=== PATIENT | male | born 1950 | race African-American/Black ===

== ENCOUNTER 2016-06-28 12:04 | Emergency (ER) | payer OTHER ==
[~2016-06-28] VITALS: Ht 160 cm; Wt 74.8 kg
[~2016-06-28 12:04] MED LIST: AUGMENTIN 875-1 EAC1 ORAL; CARDIZEM60 MG ORAL; DILANTIN100 MG ORAL; LOPRESSOR25 M1 ORAL; MORPHINE SULFAT15 MG PO; NKM; NORCO 5-325 TA1 EACH ORAL; UNOBMED; [UNRECOGNIZED DRUG - REMARK]
[2016-06-28 13:10] LABS: BASOPHILS % (AUTO) 1.9 % (0.0-2.0); EOSINOPHILS % (AUTO) 0.2 % (0.0-3.0); LYMPHOCYTES % (AUTO) 19.9 % (20.0-45.0); MEAN CORPUSCULAR HEMOGLOBIN 27.1 PG (27.0-31.0); MEAN CORPUSCULAR HGB CONC 30.7 G/DL (32.0-36.0); MEAN CORPUSCULAR VOLUME 88 FL (80-99); MONOCYTES % (AUTO) 9.4 % (1.0-10.0); NEUTROPHILS % (AUTO) 68.6 % (45.0-75.0); PLATELET COUNT 158 K/UL (150-450); RED BLOOD COUNT 4.19 M/UL (4.70-6.10); RED CELL DISTRIBUTION WIDTH 12.3 % (11.6-14.8); WHITE BLOOD COUNT 5.8 K/UL (4.8-10.8)
[2016-06-28 13:21] LABS: INR 1.1 (0.9-1.1); PROTHROMBIN TIME 10.7 SEC (9.30-11.50)
[2016-06-28 13:23] LABS: TROPONIN I < 0.30 ng/mL (<=0.30)
[2016-06-28 13:24] LABS: APPEARANCE,URINE CLEAR; KETONES,URINE 1+ (NEGATIVE); LEUKOCYTE ESTERASE ,URINE 1+ (NEGATIVE); NITRITE,URINE NEGATIVE (NEGATIVE); PH,URINE 6 (4.5-8.0); PROTEIN,URINE 2+ (NEGATIVE); UROBILINOGEN,URINE 4 MG/DL (0.0-1.0)
[2016-06-28 13:26] LABS: ALANINE AMINOTRANSFERASE 8 U/L (3-41); ALBUMIN/GLOBULIN RATIO 0.8 (1.0-2.7); ANION GAP 14 (5-15); ASPARTATE AMINO TRANSFERASE 14 U/L (5-40); CALCIUM 9.6 mg/dL (8.6-10.2); CARBON DIOXIDE 26 mEQ/L (20-30); CHLORIDE 98 mEQ/L (98-107); GLOMERULAR FILTRATION RATE > 60 mL/min (>60); HEMOLYSIS 7; POTASSIUM 3.8 mEQ/L (3.4-4.9); SODIUM 138 mEQ/L (135-145); TOTAL PROTEIN 7.2 g/dL (6.6-8.7)
[2016-06-28 13:31] VITALS: BP 152/98
[2016-06-28 13:45] LABS: BACTERIA,URINE FEW /HPF; MUCUS,URINE MODERATE /LPF (NONE/OCC); RBC,URINE 0-2 /HPF (0 - 0); SQUAMOUS EPITHELIAL CELL,UR OCCASIONAL /LPF (NONE/OCC); WBC,URINE 0-2 /HPF (0 - 0)
[2016-06-28 15:19] VITALS: BP 154/89
--- NOTE | 2016-06-28 16:14 | Emergency Room Report ---
History of Present Illness General Chief Complaint: General Complaint Source: Patient, Medical Record Present Illness HPI The patient presents with increased left facial swelling and weakness. He is undergoing radiation therapy and chemotherapy for a tumor. 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 Patient denies headache or chest pain. He is taking morphine at home. His history of lung cancer and also a tumor in his neck or side of his face. I evaluated the patient in the past (10/13) after a parotid biopsy. Here are parts of my note from then: Patient presents with swelling pain and drainage from a mass in his left neck and cheek area. According to the laborer dairy farm the drainage started after a biopsy was obtained. The problem also is identified as starting at that time. The biopsy was done in August. The patient denies any headache, difficulty breathing or swallowing. He also denies fever. He denies pain in the area. The patient also reports that he has a spot on his right lung. He states that the mass is getting larger at this time and then he was seen a month ago. 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 Past Surgical History: other - biopsy in August, craneotomy Social History: Reports: smoking Social History Narrative with laborer dairy farm Head: atraumatic, other - large mass L parotid area extending into neck sychiatric: anxious, other - perseveration Skin: warm/dry, other - large mass with small biopsy area neck with min drainage, erythroderma Primary Impression: Parotid mass Additional Impressions: Facial cellulitis, Jugular DVT, Apical lung mass R ER Course Patient presents with a large parotid mass on the left side. He states that it' s been draining pus recently. Denies any fevers. There is also pain and swelling and redness of the skin in that area. Differential includes parotid mass, abscess, facial cellulitis amongst others. Concern is that this mass is extending down into his neck and an emergent CT with IV contrast is ordered in order to evaluate the extent. The patient also states that he had a spot on his right lung. Antibiotics are begun and laboratory evaluation is undertaken. There is no airway compromise at this time. 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 In addition there is a right 4 centimeter apical lung. This patient's problems are emergent and is to have ENT and oncology evaluation urgently. Discussion with Dr. Elizondo centered around transfer to [facility]. He requested we start lovenox. 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 at home Reviewed Nursing Documentation: PMH: Agreed, PSxH: Agreed Nursing Documentation-PMH Hx Hypertension: Yes Hx Cancer: Yes - Neck Cancer Hx Gastrointestinal Problems: Yes - Ileus 08/1015 Hx Neurological Problems: Yes - brain aneurysm Hx Cerebrovascular Accident: Yes Hx Seizures: Yes - 06/2014 Hx Epilepsy: Yes Review of Systems All Other Systems: negative except mentioned in HPI Physical Exam Vital Signs Date Time Temp Pulse Resp B/P Pulse Ox O2 Delivery O2 Flow Rate FiO2 06/28/16 12:09 71 20 97 Room Air 06/28/16 13:31 97.7 152/98 06/28/16 15:19 2.0 Sp02 EP Interpretation: reviewed, normal General Appearance: well appearing, no apparent distress, GCS 15 Head: normocephalic Eyes: bilateral eye PERRL, bilateral eye other - blind ENT: moist mucus membranes Neck: supple, other - radiation changes with hyperpigmentation L Respiratory: lungs clear, normal breath sounds Cardiovascular #1: regular rate, rhythm Cardiovascular #2: 2+ radial (R) Gastrointestinal: normal inspection, normal bowel sounds, non tender, no mass, non-distended Musculoskeletal: back normal, gait/station normal, normal range of motion Neurologic: alert, oriented x3, motor strength/tone normal, DTRs symmetric, sensory intact, other - slightly slurred with L facial numbness and paresis Psychiatric: anxious Skin: warm/dry, other - post radiation changes L face and neck Medical Decision Making Diagnostic Impression: Primary Impression: Parotid mass Additional Impressions: L facial paresis Blindness from glaucoma ER Course Initially I was called to evaluate the patient that because of the possibility of a stroke. At that time there was no evidence of weakness aside from the left side of the face. The patient is also blind. There was no evidence of acute stroke at this time. However there is evidence of left-sided facial weakness. From my previous examination the parotid mass is quite a bit reduced however he has significant left-sided facial weakness. As the laborer dairy farm states that there is new weakness there evaluated with a CT scan of the head, face and chest with contrast. In addition laboratory tests will be obtained to exclude infective process and electrolyte abnormalities. Labs remarkable for normal WBC and acceptable electrolytes. Patient unchanged. Discussed need for return to his own MDs for repeat evaluation as "treated" tumor is becoming more symptomatic. Manager Of Radiology and patient understand. Stable for outpatient observation and treatment. Laboratory Tests Test 06/28/16 12:50 06/28/16 13:07 White Blood Count 5.8 K/UL (4.8-10.8) Red Blood Count 4.19 M/UL (4.70-6.10) L Hemoglobin 11.4 G/DL (14.2-18.0) L Hematocrit 37.0 % (42.0-52.0) L Mean Corpuscular Volume 88 FL (80-99) Mean Corpuscular Hemoglobin 27.1 PG (27.0-31.0) Mean Corpuscular Hemoglobin Concent 30.7 G/DL (32.0-36.0) L Red Cell Distribution Width 12.3 % (11.6-14.8) Platelet Count 158 K/UL (150-450) Mean Platelet Volume 6.0 FL (6.5-10.1) L Neutrophils (%) (Auto) 68.6 % (45.0-75.0) Lymphocytes (%) (Auto) 19.9 % (20.0-45.0) L Monocytes (%) (Auto) 9.4 % (1.0-10.0) Eosinophils (%) (Auto) 0.2 % (0.0-3.0) Basophils (%) (Auto) 1.9 % (0.0-2.0) Prothrombin Time 10.7 SEC (9.30-11.50) Prothrombin Time INR 1.1 (0.9-1.1) PTT 23 SEC (23-33) Sodium Level 138 mEQ/L (135-145) Potassium Level 3.8 mEQ/L (3.4-4.9) Chloride Level 98 mEQ/L (98-107) Carbon Dioxide Level 26 mEQ/L (20-30) Anion Gap 14 (5-15) Blood Urea Nitrogen 7 mg/dL (7-23) Creatinine 1.0 mg/dL (0.7-1.2) Estimate Glomerular Filtration Rate > 60 mL/min (>60) Glucose Level 120 mg/dL (74-106) H Calcium Level 9.6 mg/dL (8.6-10.2) Total Bilirubin 0.4 mg/dL (0.0-1.2) Aspartate Amino Transferase (AST) 14 U/L (5-40) Alanine Aminotransferase (ALT) 8 U/L (3-41) Alkaline Phosphatase 52 U/L (40-129) Total Creatine Kinase 66 U/L (38-174) Troponin I < 0.30 ng/mL (<=0.30) Pro-B-Type Natriuretic Peptide 160 pg/mL (0-125) H Total Protein 7.2 g/dL (6.6-8.7) Albumin 3.4 g/dL (3.5-5.2) L Globulin 3.8 g/dL Albumin/Globulin Ratio 0.8 (1.0-2.7) L Urine Color Yellow Urine Appearance Clear Urine pH 6 (4.5-8.0) Urine Specific [place] 1.020 (1.005-1.035) Urine Protein 2+ (NEGATIVE) H Urine Glucose (UA) Negative (NEGATIVE) Urine Ketones 1+ (NEGATIVE) H Urine Occult Blood 1+ (NEGATIVE) H Urine Nitrite Negative (NEGATIVE) Urine Bilirubin Negative (NEGATIVE) Urine Urobilinogen 4 MG/DL (0.0-1.0) H Urine Leukocyte Esterase 1+ (NEGATIVE) H Urine RBC 0-2 /HPF (0 - 0) H Urine WBC 0-2 /HPF (0 - 0) Urine Squamous Epithelial Cells Occasional /LPF Urine Bacteria Few /HPF (NONE) Urine Mucus Moderate /LPF (NONE/OCC) H EKG Diagnostic Results Rate: normal Rhythm: NSR ST Segments: no acute changes - RBBB with LAD1 Rhythm Strip Diag. Results EP Interpretation: yes Rhythm: NSR, no PVC's, no ectopy CT/MRI/US Diagnostic Results CT/MRI/US Diagnostic Results #1: Imaging Test Ordered: head + contrast Impression Impression: No change from the prior study. No acute intracranial hemorrhage, mass effect or edema. Evidence of previous aneurysm clipping and craniotomy over the left side as discussed above. Some chronic changes as discussed above. CT/MRI/US Diagnostic Results #2: Imaging Test Ordered: neck + contrast Impression Impression: Very limited examination demonstrating heterogeneous enlargement and enhancement of the left parotid gland. The findings are probably on the basis of interval treatment such as XRT and/or surgery. The possibility of cellulitis either as a consequence of XRT or infection is certainly not excluded. Please correlate clinically. CT/MRI/US Diagnostic Results #3: Imaging Test Ordered: chest + contrast Impression Impression: No new or acute findings within the chest identified. Spiculated mass consistent with primary versus secondary neoplasm in the right upper lobe. The mass has clearly decreased in size compared to the previous study from 02/29/16. Suggest confirmation with CT PET and other clinical indicators. Some chronic changes within the lungs as described above. T5 compression fracture probably old Small hiatal hernia Chest port in good position Spondylosis Last Vital Signs Date Time Temp Pulse Resp B/P Pulse Ox O2 Delivery O2 Flow Rate FiO2 06/28/16 16:35 73 19 151/83 100 Room Air 06/28/16 15:19 2.0 06/28/16 13:41 97.7 Status: improved Disposition: HOME, SELF-CARE Condition: Stable Scripts Cephalexin* (KEFLEX*) 500 Mg Capsule 500 MG ORAL EVERY 6 HOURS, #28 CAP Prov: Jeet Nobles M.D. 06/28/16 Referrals: [facility],REFERR[facility] (PCP) Jeet Nobles M.D. Jun 28, 2016 16:14
[2016-06-28] MEDS ORDERED: CEPHALEXIN500 MG ORAL (16:22)
[2016-06-28 16:35] VITALS: BP 151/83
--- NOTE | 2016-06-29 10:23 | Diagnostic Imaging Report ---
Indication: Lung carcinoma Technique: Continuous helical transaxial imaging of the chest was obtained from the thoracic inlet to the upper abdomen after intravenous nonionic contrast administration. Coronal 2-D reformats were also obtained. Total Dose length Product (DLP): [address] Dose Index Volume (CTDIvol): 70.4, 24.8, 19.5, 70.4 mGy Comparison: none Findings: There is a spiculated mass measuring 2.5 x 1.8 CM within the right upper lobe consistent with primary versus secondary neoplasm. This is demonstrated on the previous CTA 02/29/16 and appears smaller (contrary to the preliminary interpretation by [employer]). This is presumably on the basis of interval chemotherapy. Findings may be confirmed on CT PET. There is no airspace disease to suggest pneumonia. Interstitium is stable. Some chronic changes are noted including paraseptal blebs in the upper lobes and a few scattered pneumatoceles. There is no adenopathy. There is a right chest port noted. Aorta is mildly calcified and slightly enlarged. Small hiatal hernia is present. There is narrowing of intervertebral discs and accompanying endplate osteophyte formation. Hypertrophied facet joints also demonstrated. There is a compression fracture deformity of the T5 vertebra which is diminished in height. Impression: No new or acute findings within the chest identified. Spiculated mass consistent with primary versus secondary neoplasm in the right upper lobe. The mass has clearly decreased in size compared to the previous study from 02/29/16. Suggest confirmation with CT PET and other clinical indicators. Some chronic changes within the lungs as described above. T5 compression fracture probably old Small hiatal hernia Chest port in good position Spondylosis
--- NOTE | 2016-06-29 10:39 | Diagnostic Imaging Report ---
Indication: Neck pain. Technique: Continuous helical imaging of the neck was obtained transaxially from the skull base to the upper thoracic spine during intravenous administration of nonionic contrast. 2-D coronal and sagittal reformatted images were obtained. Total Dose length Product (DLP): Refer to CT chest report CT Dose Index Volume (CTDIvol): Refer to CT chest report Comparison: 10/14/15 Findings: The current study is very limited due to positioning and motion. There is diffuse heterogeneous enlargement and some enhancement of the area of the left parotid gland. On the previous ET the left parotid gland was markedly enlarged. This was felt to be secondary to either tumor or an inflammatory process. This is either been resected or radiated in the interval. There is diffuse subcutaneous infiltration of the left side of the face as well with edema present. Differential consideration is that of cellulitis due to an infection. Please correlate clinically. There is thickening of the pharyngeal mucosal airway along the left-sided the nasopharynx and oropharynx. The epiglottis is normal. No obvious laryngeal abnormality seen. No obvious abscess identified. Impression: Very limited examination demonstrating heterogeneous enlargement and enhancement of the left parotid gland. The findings are probably on the basis of interval treatment such as XRT and/or surgery. The possibility of cellulitis either as a consequence of XRT or infection is certainly not excluded. Please correlate clinically. The CT scanner at [facility] is accredited by the [employer] and the scans are performed using protocols designed to limit radiation exposure to as low as reasonably achievable to attain images of sufficient resolution adequate for diagnostic evaluation.
--- NOTE | 2016-06-29 11:50 | Diagnostic Imaging Report ---
Indication: Focal weakness Technique: Contiguous 5 mm thick transaxial imaging of the head obtained in a Siemens Sensation [address] scanner. Soft tissue and bone windows generated Total Dose length Product (DLP): [address] Dose Index Volume (CTDIvol): 70.4, 25, 20, 71 mGy Comparison: 12/19/14 Findings: There is asymmetry of the anterior horns of the left lateral ventricle which is larger on the left side. This is unchanged from the last study. This is associated with some left frontal white matter low attenuation which may be due to chronic small disease or white matter ischemia. Findings are stable and chronic. There is no mass effect or edema. There is no evidence of acute intracranial hemorrhage. Aneurysm clip noted in the anterior part of the left middle cranial fossa in the area of the sylvian fissure. Left frontal and temporal craniotomy noted. Opacification of the left mastoid air cells noted. Impression: No change from the prior study. No acute intracranial hemorrhage, mass effect or edema. Evidence of previous aneurysm clipping and craniotomy over the left side as discussed above. Some chronic changes as discussed above. The CT scanner at [facility] is accredited by the [employer] and the scans are performed using protocols designed to limit radiation exposure to as low as reasonably achievable to attain images of sufficient resolution adequate for diagnostic evaluation.
--- NOTE | 2016-06-30 15:19 | Cardiology Report ---
APPROVED REPORT EKG Measurement Heart [id number] Normal sinus rhythm Left axis deviation Right bundle branch block Abnormal ECG
--- NOTE | 2016-07-04 10:30 | Diagnostic Imaging Report ---
Indication: Chest Pain Comparison: 02/29/16 A single view chest radiograph was obtained. Findings: No definite infiltrate or pulmonary vascular congestion identified. The heart is normal in size. The aorta is mildly enlarged consistent with atherosclerotic vascular disease. Left shoulder prosthesis and chest port again noted. The bones are osteopenic. Impression: No acute disease
== END 2016-06-28 16:40 | disposition home or self-care (01) ==
LOC: EMR 12:37
DX: R22.1 Localized swelling, mass and lump, neck (principal); R29.810 Facial weakness; R22.0 Localized swelling, mass and lump, head; R53.1 Weakness; H54.0 Blindness, both eyes; H40.9 Unspecified glaucoma; F17.200 Nicotine dependence, unspecified, uncomplicated; L03.211 Cellulitis of face; I82.C19 Acute embolism and thrombosis of unspecified internal jugular vein; R91.8 Other nonspecific abnormal finding of lung field; Z86.69 Personal history of other diseases of the nervous system and sense organs; Z86.73 Personal history of transient ischemic attack (TIA), and cerebral infarction without residual deficits
CPT/HCPCS: 36415; 70460; 70491; 71010; 71260; 80053; 81003; 82550; 83880; 84484; 85025; 85610; 85730; 93005; 99284; Q9967

== ENCOUNTER 2016-07-17 08:20 | Emergency (ER) | payer OTHER ==
[~2016-07-17] VITALS: Ht 170.2 cm; Wt 72.6 kg
[~2016-07-17 08:20] MED LIST changes: +CEPHALEXIN500 MG ORAL
[2016-07-17 08:29] VITALS: BP 119/97
[2016-07-17] MEDS ORDERED: Norco 5mg/325mg tab ORAL ONE (08:45)
[2016-07-17] MEDS ORDERED: Ketorolac 60mg Inj IM ONE (08:45)
--- NOTE | 2016-07-17 08:54 | Emergency Room Report ---
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 And has also been found to have lung cancer Here he denies any headache Patient is blind secondary to severe glaucoma Denies any chest pain He did complain of left-sided facial pain Allergies: Coded Allergies: No Known Allergies (Unverified , 12/19/14) Patient History Limited by: medical condition Past Medical History: see triage record Pertinent Family History: none Reviewed Nursing Documentation: PMH: Agreed, PSxH: Agreed Nursing Documentation-PMH Past Medical History: No History, Except For Hx Hypertension: Yes Hx Cancer: Yes - diagnosis August 2015 Hx Gastrointestinal Problems: Yes - Ileus 08/1015 Hx Neurological Problems: Yes - brain aneurysm Hx Cerebrovascular Accident: Yes Hx Seizures: Yes - 06/2014 Hx Epilepsy: Yes Review of Systems All Other Systems: negative except mentioned in HPI Physical Exam Vital Signs Date Time Temp Pulse Resp B/P Pulse Ox O2 Delivery O2 Flow Rate FiO2 07/17/16 08:15 97.5 108 18 137/92 96 Room Air Sp02 EP Interpretation: reviewed, normal General Appearance: no apparent distress Head: normocephalic, atraumatic Eyes: bilateral eye other - Blind bilaterally secondary to severe glaucoma ENT: other - Swelling of the left facial region, no stridor, speaking clearly Respiratory: lungs clear, normal breath sounds Cardiovascular #1: regular rate, rhythm, no edema Gastrointestinal: non tender, soft, no mass Musculoskeletal: normal inspection Neurologic: alert, responsive Skin: other - as noted above Lymphatic: no adenopathy Medical Decision Making Diagnostic Impression: Primary Impression: Facial pain Additional Impression: Cancer ER Course Several differentials are considered Metastatic disease to the brain, other infectious pathology Patient however her continues to rest comfortably He was provided with pain medication Culinary Instructor who is with the patient during daytime hours is also here She feels that the patient acts out once in a while when not getting what he wants Otherwise patient has had recent visit here as well fairly extensive workup Today's CAT scan was negative and baseline blood work were also appropriate The patient is stable for close outpatient followup Labs Test 1/21/17 09:12 White Blood Count 6.7 K/UL (4.8-10.8) Red Blood Count 4.84 M/UL (4.70-6.10) Hemoglobin 13.3 G/DL (14.2-18.0) Hematocrit 42.4 % (42.0-52.0) Mean Corpuscular Volume 88 FL (80-99) Mean Corpuscular Hemoglobin 27.4 PG (27.0-31.0) Mean Corpuscular Hemoglobin Concent 31.3 G/DL (32.0-36.0) Red Cell Distribution Width 12.9 % (11.6-14.8) Platelet Count 220 K/UL (150-450) Mean Platelet Volume 6.2 FL (6.5-10.1) Neutrophils (%) (Auto) 75.2 % (45.0-75.0) Lymphocytes (%) (Auto) 13.3 % (20.0-45.0) Monocytes (%) (Auto) 9.0 % (1.0-10.0) Eosinophils (%) (Auto) 0.1 % (0.0-3.0) Basophils (%) (Auto) 2.5 % (0.0-2.0) Sodium Level 137 mEQ/L (135-145) Potassium Level 4.3 mEQ/L (3.4-4.9) Chloride Level 96 mEQ/L (98-107) Carbon Dioxide Level 24 mEQ/L (20-30) Anion Gap 17 (5-15) Blood Urea Nitrogen 16 mg/dL (7-23) Creatinine 1.1 mg/dL (0.7-1.2) Estimat Glomerular Filtration Rate > 60 mL/min (>60) Glucose Level 92 mg/dL (74-106) Calcium Level 10.0 mg/dL (8.6-10.2) CT/MRI/US Diagnostic Results CT/MRI/US Diagnostic Results : Impression CT head no acute disease Last Vital Signs Date Time Temp Pulse Resp B/P Pulse Ox O2 Delivery O2 Flow Rate FiO2 07/17/16 08:29 97.5 98 25 119/97 99 Room Air Status: improved Disposition: HOME, SELF-CARE Condition: Improved Referrals: [facility],REF[facility] (PCP) Additional Instructions: Patient is provided with the discharge instructions notified to follow up with primary doctor in the next 2-3 days otherwise return to the er with any worsening symptoms. MEHUL NAVARRETE D.O. Jul 17, 2016 08:54
[2016-07-17 09:37] LABS: ANION GAP 17 (5-15); CARBON DIOXIDE 24 mEQ/L (20-30); CHLORIDE 96 mEQ/L (98-107); CREATININE 1.1 mg/dL (0.7-1.2); GLOMERULAR FILTRATION RATE > 60 mL/min (>60); HEMOLYSIS 12; POTASSIUM 4.3 mEQ/L (3.4-4.9); SODIUM 137 mEQ/L (135-145)
[2016-07-17 09:46] LABS: BASOPHILS % (AUTO) 2.5 % (0.0-2.0); EOSINOPHILS % (AUTO) 0.1 % (0.0-3.0); LYMPHOCYTES % (AUTO) 13.3 % (20.0-45.0); MEAN CORPUSCULAR HEMOGLOBIN 27.4 PG (27.0-31.0); MEAN CORPUSCULAR HGB CONC 31.3 G/DL (32.0-36.0); MEAN CORPUSCULAR VOLUME 88 FL (80-99); MEAN PLATELET VOLUME 6.2 FL (6.5-10.1); NEUTROPHILS % (AUTO) 75.2 % (45.0-75.0); PLATELET COUNT 220 K/UL (150-450); RED BLOOD COUNT 4.84 M/UL (4.70-6.10); RED CELL DISTRIBUTION WIDTH 12.9 % (11.6-14.8); WHITE BLOOD COUNT 6.7 K/UL (4.8-10.8)
[2016-07-17 10:04] VITALS: BP 138/80
[2016-07-17 10:06] VITALS: BP 138/80
--- NOTE | 2016-07-18 11:46 | Diagnostic Imaging Report ---
Indication: Altered mental status Technique: Continuous helical CT scanning of the head was performed utilizing automated exposure control without intravenous contrast material. Axial and coronal reconstructions were obtained. Comparison: 12/19/14 CT dose: Total DLP 1382 mGycm; CTDI vol 70.4 mGy Findings: There is no intracranial hemorrhage. Postsurgical changes of the left calvarium are again noted with vascular clips of the left middle cranial fossa and stable focal encephalomalacia of the adjacent temporal lobe. The ventricles, sulci and cisterns are stable. Periventricular and subcortical hypoattenuation are again noted. Fourth ventricle and posterior fossa are stable. The left mastoids are opacified. Impression: No acute intracranial hemorrhage or focal cortical edema. Stable postsurgical changes with vascular clips in the left middle cranial fossa with adjacent temporal encephalomalacia and expected dilatation of the left temporal horn. Mild periventricular and subcortical hypoattenuation, nonspecific, suggestive of chronic ischemic microvascular changes. MRI may be obtained for more sensitive evaluation as indicated. The CT scanner at [facility] is accredited by the [employer] and the scans are performed using protocols designed to limit radiation exposure to as low as reasonably achievable to attain images of sufficient resolution adequate for diagnostic evaluation.
== END 2016-07-17 10:07 | disposition home or self-care (01) ==
LOC: EDBD 08:20 → EMR 08:47
DX: R51 Headache (principal); C07 Malignant neoplasm of parotid gland; C34.90 Malignant neoplasm of unspecified part of unspecified bronchus or lung; H54.0 Blindness, both eyes; I10 Essential (primary) hypertension; Z86.73 Personal history of transient ischemic attack (TIA), and cerebral infarction without residual deficits; Z86.69 Personal history of other diseases of the nervous system and sense organs
CPT/HCPCS: 36415; 70450; 80048; 85025; 96372; 99284

== ENCOUNTER 2016-07-21 07:27 | Emergency (ER) | payer OTHER ==
[~2016-07-21] VITALS: Ht 162.6 cm; Wt 72.6 kg
[2016-07-21 08:00] VITALS: BP 135/97
[2016-07-21 08:40] LABS: BASOPHILS % (AUTO) 1.9 % (0.0-2.0); LYMPHOCYTES % (AUTO) 14.9 % (20.0-45.0); MEAN CORPUSCULAR HEMOGLOBIN 29.2 PG (27.0-31.0); MEAN CORPUSCULAR HGB CONC 33.1 G/DL (32.0-36.0); MEAN CORPUSCULAR VOLUME 88 FL (80-99); MEAN PLATELET VOLUME 6.3 FL (6.5-10.1); MONOCYTES % (AUTO) 10.1 % (1.0-10.0); PLATELET COUNT 228 K/UL (150-450); RED BLOOD COUNT 5.35 M/UL (4.70-6.10); RED CELL DISTRIBUTION WIDTH 13.5 % (11.6-14.8); WHITE BLOOD COUNT 7.3 K/UL (4.8-10.8)
--- NOTE | 2016-07-21 08:48 | Emergency Room Report ---
History of Present Illness General Chief Complaint: General Complaint Source: Patient Present Illness HPI 65-year-old male presents to ED for evaluation. Patient brought in by EMS. EMS stated that bystander called 911 because patient was loitering outside of his apartment this morning. Upon arrival patient denies any complaints. States that he does not know why 911 was called. Cannot explain why he was waiting outside this morning. Per EMS patient is well-known, has made multiple visits recently to [facility] for similar presentation. 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 No other aggravating or relieving factors. Denies any other associated symptoms Allergies: Coded Allergies: No Known Allergies (Unverified , 12/19/14) Patient History Past Medical History: HTN, seizures, other - parotid Pertinent Family History: none Social History: Denies: alcohol use, drug use, smoking Immunizations: UTD Reviewed Nursing Documentation: PMH: Agreed, PSxH: Agreed Nursing Documentation-PMH Past Medical History: No History, Except For Hx Hypertension: Yes Hx Cancer: Yes - throat Hx Gastrointestinal Problems: Yes - Ileus 08/1015 Hx Neurological Problems: Yes - brain aneurysm Hx Cerebrovascular Accident: Yes Hx Seizures: Yes - 06/2014 Hx Epilepsy: Yes Review of Systems All Other Systems: negative except mentioned in HPI Physical Exam Vital Signs Date Time Temp Pulse Resp B/P Pulse Ox O2 Delivery O2 Flow Rate FiO2 07/21/16 07:20 98.2 100 14 125/84 98 Room Air Sp02 EP Interpretation: reviewed, normal General Appearance: no apparent distress, alert, GCS 15, non-toxic Head: normocephalic ENT: other - L parotid swelling Neck: full range of motion, supple/symm/no masses Respiratory: chest non-tender, lungs clear, normal breath sounds, speaking full sentences Cardiovascular #1: regular rate, rhythm, no edema Gastrointestinal: normal inspection Rectal: deferred Genitourinary: no CVA tenderness Musculoskeletal: normal inspection Neurologic: alert, oriented x3, responsive, motor strength/tone normal, sensory intact, speech normal Psychiatric: normal inspection Skin: normal inspection Lymphatic: normal inspection Medical Decision Making Diagnostic Impression: Primary Impression: Parotid mass ER Course 65-year-old male presents ED for evaluation. Found outside on the street. History of parotid cancer. Poor historian. Differential-dehydration, sepsis, pneumonia, Patient placed on stretcher. After initial history and physical I ordered labs , EKG, IV fluids chest x-ray Patient has port which was accessed for IV fluids and blood work. Labs-no leukocytosis, hemoglobin/hematocrit stable, electrolytes okay, troponins negative EKG-normal sinus rhythm no ischemic changes Chest x-ray port in place, no infiltrate Station Captain is at bedside, states that patient has tendency to wander off. Patient is on hospice care. Identified no life-threatening condition requiring further evaluation or workup. Patient agrees to be discharged Diagnosis-parotid mass Stable and discharged to home. Followup with PMD. Return to ED if symptoms recur or worsen Labs Test 07/21/16 08:08 07/21/16 09:10 White Blood Count 7.3 K/UL (4.8-10.8) Red Blood Count 5.35 M/UL (4.70-6.10) Hemoglobin 15.6 G/DL (14.2-18.0) Hematocrit 47.3 % (42.0-52.0) Mean Corpuscular Volume 88 FL (80-99) Mean Corpuscular Hemoglobin 29.2 PG (27.0-31.0) Mean Corpuscular Hemoglobin Concent 33.1 G/DL (32.0-36.0) Red Cell Distribution Width 13.5 % (11.6-14.8) Platelet Count 228 K/UL (150-450) Mean Platelet Volume 6.3 FL (6.5-10.1) Neutrophils (%) (Auto) 73.0 % (45.0-75.0) Lymphocytes (%) (Auto) 14.9 % (20.0-45.0) Monocytes (%) (Auto) 10.1 % (1.0-10.0) Eosinophils (%) (Auto) 0.0 % (0.0-3.0) Basophils (%) (Auto) 1.9 % (0.0-2.0) Sodium Level 141 mEQ/L (135-145) Potassium Level 4.4 mEQ/L (3.4-4.9) Chloride Level 99 mEQ/L (98-107) Carbon Dioxide Level 24 mEQ/L (20-30) Anion Gap 18 (5-15) Blood Urea Nitrogen 11 mg/dL (7-23) Creatinine 1.2 mg/dL (0.7-1.2) Estimat Glomerular Filtration Rate > 60 mL/min (>60) Glucose Level 101 mg/dL (74-106) Calcium Level 10.5 mg/dL (8.6-10.2) Total Bilirubin 0.7 mg/dL (0.0-1.2) Aspartate Amino Transf (AST/SGOT) 16 U/L (5-40) Alanine Aminotransferase (ALT/SGPT) 9 U/L (3-41) Alkaline Phosphatase 56 U/L (40-129) Total Creatine Kinase 85 U/L (38-174) Creatine Kinase MB 1.7 ng/mL (< 6.7) Creatine Kinase MB Relative Index 2.0 Troponin I < 0.30 ng/mL (<=0.30) Pro-B-Type Natriuretic Peptide 162 pg/mL (0-125) Total Protein 8.2 g/dL (6.6-8.7) Albumin 3.9 g/dL (3.5-5.2) Globulin 4.3 g/dL Albumin/Globulin Ratio 0.9 (1.0-2.7) Phenytoin (Dilantin) Level < 0.8 ug/mL (10-20) EKG Diagnostic Results Rate: tachycardiac Rhythm: NSR ST Segments: other - bifasciular block ASA given to the pt in ED: No Rhythm Strip Diag. Results EP Interpretation: yes Rhythm: NSR, no PVC's, no ectopy Chest X-Ray Diagnostic Results EP Interpretation: No Findings: no consolidation, no effusion, no pneumothorax, no acute cardiopulmonary disease, other - port Number of Views: 1 Last Vital Signs Date Time Temp Pulse Resp B/P Pulse Ox O2 Delivery O2 Flow Rate FiO2 07/21/16 08:00 108 20 135/97 97 Room Air 07/21/16 07:20 98.2 Status: improved Disposition: HOME, SELF-CARE Condition: Stable Referrals: [facility],REFERR[facility] (PCP) SUMMER LOYA M.D. Jul 21, 2016 08:48
[2016-07-21 09:38] LABS: TROPONIN I < 0.30 ng/mL (<=0.30)
[2016-07-21 09:41] LABS: ALANINE AMINOTRANSFERASE 9 U/L (3-41); ALBUMIN/GLOBULIN RATIO 0.9 (1.0-2.7); ANION GAP 18 (5-15); ASPARTATE AMINO TRANSFERASE 16 U/L (5-40); CALCIUM 10.5 mg/dL (8.6-10.2); CARBON DIOXIDE 24 mEQ/L (20-30); CHLORIDE 99 mEQ/L (98-107); CREATININE 1.2 mg/dL (0.7-1.2); GLOMERULAR FILTRATION RATE > 60 mL/min (>60); HEMOLYSIS 3; POTASSIUM 4.4 mEQ/L (3.4-4.9); SODIUM 141 mEQ/L (135-145); TOTAL PROTEIN 8.2 g/dL (6.6-8.7)
[2016-07-21 09:52] LABS: CKMB 1.7 ng/mL (< 6.7)
[2016-07-21 10:00] VITALS: BP 123/87
[2016-07-21] MEDS ORDERED: Morphine Sulfate 4mg/ml Inj IVP ONE (10:00)
[2016-07-21] MEDS ORDERED: Tubing IV Cassette IV ONE (10:04)
[2016-07-21 10:35] VITALS: BP 123/87
--- NOTE | 2016-07-21 13:39 | Diagnostic Imaging Report ---
Indication: COUGH, chest pain Technique: One view of the chest Comparison: 06/28/2016 Findings: There is a left shoulder prosthesis. There is a right chest port catheter again demonstrated. Inspiration is better currently. Lungs and pleural spaces are clear. Aorta is tortuous. Upper mediastinum is unremarkable Impression: Findings as noted. No acute process
--- NOTE | 2016-07-26 19:23 | Cardiology Report ---
APPROVED REPORT EKG Measurement Heart [id number] Sinus tachycardia Possible Left atrial enlargement Right bundle branch block Left anterior fascicular block Bifascicular block Septal infarct, age undetermined Abnormal ECG
== END 2016-07-21 10:35 | disposition home or self-care (01) ==
LOC: EDBD 07:27 → EMR 07:46
DX: R22.1 Localized swelling, mass and lump, neck (principal); Z85.89 Personal history of malignant neoplasm of other organs and systems; I10 Essential (primary) hypertension; Z86.73 Personal history of transient ischemic attack (TIA), and cerebral infarction without residual deficits
CPT/HCPCS: 36415; 71010; 80053; 80185; 82550; 82553; 83880; 84484; 85025; 93005; 96361; 96374; 96375; 99284; J2270; J2405; J7040

== ENCOUNTER 2016-07-29 08:38 | Emergency (ER) | payer OTHER ==
[~2016-07-29] VITALS: Ht 165.1 cm; Wt 6.8 kg
[2016-07-29 08:44] VITALS: BP 130/70
[2016-07-29] MEDS ORDERED: Acetaminophen 500mg (ES) tab PO ONE (08:45)
[2016-07-29] MEDS ORDERED: Neosporin Oint Ud Pkt TOP ONE (08:45)
[2016-07-29 08:50] VITALS: BP 122/58
--- NOTE | 2016-07-29 09:05 | Emergency Room Report ---
History of Present Illness General Chief Complaint: Multiple Trauma/Fall Source: Patient, EMS Present Illness HPI Patient presents after a ground-level fall. He hit his right elbow and his right knee. Paramedics were summoned. The patient states he has 9/10 pain in both areas. He also has a cut on his right knee. His tetanus was 2 years ago. On oxycontin. Took this in am. (Initially paramedics told patient had jumped out of second story window.) Patient blind due to glaucoma. 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 He denies LOC, - lost balance. No head pain or trauma. No neck pain (aside from underlying pain). The patient is known to us with a parotid tumor that extends into his neck. He has facial swelling which is chronic. He's status post radiation and chemotherapy for this. The patient denies any fevers, NVD, dysuria, back pain. 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 Nursing Documentation: PMH: Agreed, PSxH: Agreed Nursing Documentation-PMH Hx Cardiac Problems: No Hx Hypertension: Yes Hx Pacemaker: No Hx Asthma: No Hx COPD: No Hx Diabetes: Yes Hx Cancer: Yes Hx Gastrointestinal Problems: No Hx Dialysis: No History Of Psychiatric Problem: No Hx Neurological Problems: No Hx Cerebrovascular Accident: Yes Hx Seizures: Yes Hx Epilepsy: Yes Review of Systems All Other Systems: negative except mentioned in HPI Physical Exam Vital Signs Date Time Temp Pulse Resp B/P Pulse Ox O2 Delivery O2 Flow Rate FiO2 07/29/16 08:37 98.1 78 16 130/70 98 Room Air Sp02 EP Interpretation: reviewed, normal General Appearance: other - Patient is on a spineboard with cervical immobilization also. These are removed immediately the patient is taken off of the spineboard. Eyes: left eye other - exophthalmos ENT: hearing grossly normal, moist mucus membranes, other - Parotid enlargement on the left-hand side with facial edema. Neck: full range of motion, supple, no bony tend, other - induration L (past radiation) Respiratory: chest non-tender, lungs clear, normal breath sounds, other - Port- A-Cath right Cardiovascular #1: regular rate, rhythm, no edema Cardiovascular #2: 2+ radial (R) Gastrointestinal: normal bowel sounds, non tender, soft, no mass Musculoskeletal: swelling - L aface, other - Range of motion of the elbow is full. He has some tenderness on the olecranon. The shoulder and wrist are nontender. Neurologic: alert, DTRs symmetric, sensory intact, motor weakness - L face with parotid swelling, oriented - X2 Psychiatric: depressed affect - narcotized Skin: normal color, warm/dry, laceration - L knee = 1.5 cm, superficial - more flap Medical Decision Making Diagnostic Impression: Primary Impression: Fall Qualified Codes: W19.XXXA - Unspecified fall, initial encounter Additional Impressions: Elbow and knee contusions Superficial laceration R knee Parotid mass ER Course Patient presents post fall. 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 He denies loss of consciousness. He does take pain medication. X-rays indicated. In addition to that we will obtain a chest x- ray. Also patient given Tylenol and the laceration which is superficial will be dressed. X-rays exclude fractures. Recent labs (07/21) checked and no thrombocytopenia ( had chemo in past). The patient is improved with treatment here. His owner/operator states is at baseline. The patient is stable for outpatient observation and treatment. Chest X-Ray Diagnostic Results EP Interpretation: Yes Findings: no consolidation, no effusion, no pneumothorax, other - portacath and L shoulder surgery Number of Views: 1 Other X-Ray Diagnostic Results Other X-Ray Diagnostic Results #1: X-Ray Ordered: R elbow EP Interpretation: Yes Findings: no fractures, no dislocation, no soft tissue swelling Number of Views: 3 Other X-Ray Diagnostic Results #2: X-Ray Ordered: R knee EP Interpretation: Yes Findings: no fractures, no dislocation, no soft tissue swelling Number of Views: 3 Last Vital Signs Date Time Temp Pulse Resp B/P Pulse Ox O2 Delivery O2 Flow Rate FiO2 07/29/16 10:43 98.1 57 16 124/77 100 Room Air Status: improved Disposition: HOME, SELF-CARE - with owner/operator Condition: Improved Scripts Bacitracin (Bacitracin) 28.4 Gm Oint...g. 1 APPLIC TOPIC BID, #15 GM Prov: Jeet Nobles M.D. 07/29/16 Jeet Nobles M.D. Jul 29, 2016 09:05
[2016-07-29 09:41] VITALS: BP 121/65
[2016-07-29] MEDS ORDERED: BACITRACIN15 GM TOPIC (10:18)
[2016-07-29 10:42] VITALS: BP 124/77
[2016-07-29 10:43] VITALS: BP 124/77
--- NOTE | 2016-07-29 12:55 | Diagnostic Imaging Report ---
Indications: Right elbow injury, pain Technique: 3 views right elbow. Findings: Comparison: None Lateral view demonstrates questionable focal cortical discontinuity of the posterior aspect of the distal humerus. Overlying soft tissues appear mildly swollen. No additional Fracture, dislocation, joint space widening , fat pad displacement , surrounding soft tissue swelling/foreign body/other abnormality, or other acute changes are identified. IMPRESSION: Questionable nondisplaced fracture distal humerus with overlying soft tissue swelling on lateral view. Lack of evidence of joint effusion decreases the likelihood of an acute fracture, though is not completely excluded. If clinically indicated, consider CT scan or MRI for further evaluation.
--- NOTE | 2016-07-29 12:55 | Diagnostic Imaging Report ---
Indications: Chest trauma, pain Technique: Portable AP chest Findings: Comparison: 07/21/16 Cardiac silhouette remains normal in size. Pulmonary vasculature remains within normal limits. Lungs and pleura remain clear. Mild calcification of the aortic arch, right chest wall Port-A-Cath, left shoulder prosthesis all again noted. No fracture identified.. IMPRESSION: No evidence of acute injury or other acute cardiopulmonary disease, unchanged Stable chronic changes as described
--- NOTE | 2016-07-29 12:55 | Diagnostic Imaging Report ---
Indications: Right knee injury, pain Technique: 3 views right knee. Findings: Comparison: None No fracture, dislocation, joint space widening or effusion , surrounding soft tissue swelling/foreign body/other abnormality, or other acute changes are identified. IMPRESSION: No evidence of acute injury to the right knee.
== END 2016-07-29 10:48 | disposition home or self-care (01) ==
LOC: EDBD 08:38 → EMR 09:10
DX: S80.01XA Contusion of right knee, initial encounter (principal); S81.011A Laceration without foreign body, right knee, initial encounter; R22.9 Localized swelling, mass and lump, unspecified; G40.909 Epilepsy, unspecified, not intractable, without status epilepticus; Z86.73 Personal history of transient ischemic attack (TIA), and cerebral infarction without residual deficits; E11.9 Type 2 diabetes mellitus without complications; I10 Essential (primary) hypertension; W18.30XA Fall on same level, unspecified, initial encounter; Y92.9 Unspecified place or not applicable; Y99.8 Other external cause status
CPT/HCPCS: 71010; 99284